=== PATIENT | male | born 1960 | race Caucasian/White ===

== ENCOUNTER 2020-12-11 14:23 | Day surgery (SDC) | payer OTHER ==
[2020-12-11] MEDS ORDERED: Xylocaine 1% Vial 30 ML PF IJ ONE (14:24)
[2020-12-11] MEDS ORDERED: BUPIVACAINE 0.5% VIAL IJ ONE (14:24)
[2020-12-11] MEDS ORDERED: Depo-Medrol 40 MG/ML IM ONE (14:24)
== END 2020-12-11 17:09 | disposition home or self-care (01) ==
LOC: SDC-PAIN 14:23
PROVIDERS: ATTEND Psychiatry & Neurology Pain Medicine
DX: M17.0 Bilateral primary osteoarthritis of knee (principal); F41.8 Other specified anxiety disorders; E11.22 Type 2 diabetes mellitus with diabetic chronic kidney disease; I13.10 Hypertensive heart and chronic kidney disease without heart failure, with stage 1 through stage 4 chronic kidney disease, or unspecified chronic kidney disease; N18.9 Chronic kidney disease, unspecified; L40.50 Arthropathic psoriasis, unspecified; M06.9 Rheumatoid arthritis, unspecified; G62.9 Polyneuropathy, unspecified; G25.81 Restless legs syndrome; Z79.899 Other long term (current) drug therapy
CPT/HCPCS: 20610; 77002; 82947; J1030; J2001; Q9966

== ENCOUNTER 2021-05-28 13:41 | Day surgery (SDC) | payer OTHER ==
[2021-05-28] MEDS ORDERED: Depo-Medrol 40 MG/ML IM ONE (13:42)
[2021-05-28] MEDS ORDERED: BUPIVACAINE 0.5% VIAL IJ ONE (13:42)
[2021-05-28] MEDS ORDERED: Xylocaine 1% Vial 30 ML PF IJ ONE (13:42)
--- NOTE | 2021-05-28 15:21 | XRAY ---
Indication: Right knee injection. Intraoperative fluoroscopy provided for 19 seconds. Single digital spot image submitted for interpretation demonstrates needle tip projecting over the right femur intercondylar notch. Small amount of contrast injected for needle tip placement. Correlate with intraoperative findings/report.
--- NOTE | 2021-05-28 15:21 | XRAY ---
Indication: Left knee injection. Intraoperative fluoroscopy provided for 14 seconds. Single digital spot image submitted for interpretation demonstrates needle tip projecting over the left femur intercondylar notch. Small amount of contrast injected for needle tip placement. Correlate with intraoperative findings/report.
--- NOTE | 2021-05-28 15:30 | XRAY ---
19 seconds fluoroscopy time in surgery for injection of the intra-articular joint space of the left knee.
--- NOTE | 2021-05-28 15:30 | XRAY ---
14 seconds fluoroscopy time in surgery for intra-articular injection of the right knee.
== END 2021-05-28 15:14 | disposition home or self-care (01) ==
LOC: SDC-PAIN 13:41
PROVIDERS: ATTEND Psychiatry & Neurology Pain Medicine
DX: M17.0 Bilateral primary osteoarthritis of knee (principal); F41.9 Anxiety disorder, unspecified; F32.9 Major depressive disorder, single episode, unspecified; M19.90 Unspecified osteoarthritis, unspecified site; I10 Essential (primary) hypertension; I25.10 Atherosclerotic heart disease of native coronary artery without angina pectoris; I49.9 Cardiac arrhythmia, unspecified; E11.9 Type 2 diabetes mellitus without complications; N18.9 Chronic kidney disease, unspecified; M06.9 Rheumatoid arthritis, unspecified; G62.9 Polyneuropathy, unspecified; Z79.899 Other long term (current) drug therapy
CPT/HCPCS: 20610; 73560; 77002; 82947; J1030; J2001; Q9966

== ENCOUNTER 2021-11-12 12:15 | Day surgery (SDC) | payer OTHER ==
--- NOTE | 2021-11-12 16:42 | XRAY ---
Indication: Bilateral hip injection. Intraoperative fluoroscopy provided for 43 seconds. 2 digital spot images submitted for interpretation demonstrates needle tip projecting lateral to the left and right femur necks. Small amount of contrast injected for needle tip placement. Correlate with intraoperative findings/report. Incidental old proximal right femur fracture with partially visualized orthopedic hardware.
--- NOTE | 2021-11-12 16:46 | XRAY ---
43 seconds fluoroscopy time in surgery for bilateral intra-articular injections of the hips.
== END 2021-11-12 15:38 | disposition home or self-care (01) ==
LOC: SDC-PAIN 12:15
PROVIDERS: ATTEND Psychiatry & Neurology Pain Medicine
DX: M17.0 Bilateral primary osteoarthritis of knee (principal); E11.9 Type 2 diabetes mellitus without complications; Z79.899 Other long term (current) drug therapy
CPT/HCPCS: 20610; 73521; 77002; 82947; Q9966

== ENCOUNTER 2021-12-17 10:42 | Day surgery (SDC) | payer OTHER ==
[2021-12-17] MEDS ORDERED: Marcaine Mpf 0.5% Vial 30 Ml IJ ONE (10:43)
[2021-12-17] MEDS ORDERED: Xylocaine 1% Vial 30 ML PF IJ ONE (10:43)
--- NOTE | 2021-12-17 14:37 | XRAY ---
Indication: Right knee genicular nerve block. Intraoperative fluoroscopy provided for 23 seconds. 5 digital spot images of the right knees demonstrates anterior needle tips projecting medial/lateral supracondylar and medial tibial plateau. Correlate with intraoperative findings/report.
--- NOTE | 2021-12-17 14:37 | XRAY ---
Indication: Left knee genicular nerve block. Intraoperative fluoroscopy provided for 33 seconds. 3 digital spot images of the left knee demonstrates anterior needle tips projecting medial/lateral supracondylar and medial tibial plateau. Correlate with intraoperative findings/report.
[2021-12-17] MEDS ORDERED: Lactated Ringers 1,000 ML IV ONE (15:11)
--- NOTE | 2021-12-17 15:17 | XRAY ---
23 seconds of fluoroscopy was used in surgery for a right knee genicular nerve block.
--- NOTE | 2021-12-17 15:18 | XRAY ---
33 seconds of fluoroscopy was used in surgery for a left knee genicular nerve block.
== END 2021-12-17 13:48 | disposition home or self-care (01) ==
LOC: SDC-PAIN 10:42
PROVIDERS: ATTEND Psychiatry & Neurology Pain Medicine
DX: M17.0 Bilateral primary osteoarthritis of knee (principal); E11.9 Type 2 diabetes mellitus without complications; Z79.899 Other long term (current) drug therapy
CPT/HCPCS: 64454; 73560; 77002; 82947; J2001

== ENCOUNTER 2022-01-14 09:35 | Day surgery (SDC) | payer OTHER ==
[2022-01-14] MEDS ORDERED: Depo-Medrol 40 MG/ML IM ONE (09:36)
[2022-01-14] MEDS ORDERED: XYLOCAINE-MPF 1% 5ML SDV IJ ONE (09:36)
[2022-01-14] MEDS ORDERED: Marcaine Mpf 0.5% Vial 30 Ml IJ ONE (09:36)
[2022-01-14] MEDS ORDERED: Lactated Ringers 1,000 ML IV ONE (11:20)
[2022-01-14] MEDS ORDERED: DIPRIVAN 200 MG/20 ML IV ONE ×2 (12:04→12:13)
--- NOTE | 2022-01-14 13:19 | XRAY ---
Indication: Right knee genicular nerve ablation. Intraoperative fluoroscopy provided for 27 seconds. 2 digital spot images of right knee submitted for interpretation demonstrates anterior needle tips projecting medial/lateral supracondylar and medial tibial plateau. Correlate with intraoperative findings/report.
--- NOTE | 2022-01-14 13:34 | XRAY ---
27 seconds fluoroscopy time in surgery for right genicular nerve block.
== END 2022-01-14 12:33 | disposition home or self-care (01) ==
LOC: SDC-PAIN 09:35
PROVIDERS: ATTEND Psychiatry & Neurology Pain Medicine
DX: M17.11 Unilateral primary osteoarthritis, right knee (principal); E11.9 Type 2 diabetes mellitus without complications; Z79.899 Other long term (current) drug therapy
CPT/HCPCS: 64624; 73560; 77002; 82947; J1030; J2704

== ENCOUNTER 2022-01-28 09:14 | Day surgery (SDC) | payer OTHER ==
[2022-01-28] MEDS ORDERED: Marcaine Mpf 0.5% Vial 30 Ml IJ ONE (09:15)
[2022-01-28] MEDS ORDERED: XYLOCAINE-MPF 1% 5ML SDV IJ ONE (09:15)
[2022-01-28] MEDS ORDERED: Depo-Medrol 40 MG/ML IM ONE (09:15)
[2022-01-28] MEDS ORDERED: DIPRIVAN 200 MG/20 ML IV ONE ×2 (11:28→11:38)
[2022-01-28] MEDS ORDERED: Lactated Ringers 1,000 ML IV ONE (11:35)
--- NOTE | 2022-01-29 18:30 | XRAY ---
39 seconds fluoroscopy time in surgery for genicular nerve block of the left knee.
--- NOTE | 2022-01-30 16:08 | XRAY ---
Indication: Left genicular nerve ablation. Intraoperative fluoroscopy provided for 39 seconds. 3 spot images submitted for interpetation demonstrates 3 needle tips, one projected over the medial margin of the proximal left tibia and 2 additional needle tips projected over the medial and lateral margins of the supracondylar area of the distal left femur. Correlate with intraoperative findings/report.
== END 2022-01-28 11:57 | disposition home or self-care (01) ==
LOC: SDC-PAIN 09:14
PROVIDERS: ATTEND Psychiatry & Neurology Pain Medicine
DX: M17.12 Unilateral primary osteoarthritis, left knee (principal); E11.9 Type 2 diabetes mellitus without complications; Z79.899 Other long term (current) drug therapy
CPT/HCPCS: 64624; 73560; 77002; 82947; J1030; J2704

== ENCOUNTER 2023-09-01 08:36 | Day surgery (SDC) | payer OTHER ==
[2023-09-01] MEDS ORDERED: XYLOCAINE-MPF 1% 5ML SDV IJ ONE (08:37)
[2023-09-01] MEDS ORDERED: BUPIVACAINE 0.5% VIAL IJ ONE (08:37)
[2023-09-01] MEDS ORDERED: Depo-Medrol 40 MG/ML IM ONE (08:37)
[2023-09-01] MEDS ORDERED: DIPRIVAN 200 MG/20 ML IV ONE (11:28)
[2023-09-01] MEDS ORDERED: Lactated Ringers 1,000 ML IV ONE (12:27)
--- NOTE | 2023-09-01 13:58 | XRAY ---
Indication: Right knee genicular nerve ablation. Intraoperative fluoroscopy provided for 28 seconds. 3 digital spot image right knee submitted for interpretation demonstrates anterior needle tips projecting medial/lateral supracondylar and medial tibial plateau. Correlate with intraoperative findings/report.
--- NOTE | 2023-09-01 14:09 | XRAY ---
28 seconds of fluoroscopy was used in surgery for a right genicular nerve ablation.
== END 2023-09-01 12:12 | disposition home or self-care (01) ==
LOC: SDC-PAIN 08:36
PROVIDERS: ATTEND Psychiatry & Neurology Pain Medicine
DX: M17.11 Unilateral primary osteoarthritis, right knee (principal); E11.9 Type 2 diabetes mellitus without complications
CPT/HCPCS: 64624; 73560; 77002; 82947; J1030; J2704

== ENCOUNTER 2023-09-15 08:34 | Day surgery (SDC) | payer OTHER ==
[2023-09-15] MEDS ORDERED: BUPIVACAINE 0.5% VIAL IJ ONE (08:35)
[2023-09-15] MEDS ORDERED: Depo-Medrol 40 MG/ML IM ONE (08:35)
[2023-09-15] MEDS ORDERED: DIPRIVAN 200 MG/20 ML IV ONE (10:42)
[2023-09-15] MEDS ORDERED: Lactated Ringers 1,000 ML IV ONE (11:22)
--- NOTE | 2023-09-15 12:10 | XRAY ---
Indication: Left knee genicular nerve ablation. Intraoperative fluoroscopy was provided for 35 seconds. 3 digital spot image submitted for interpretation demonstrates anterior needle tips projecting medial/lateral supracondylar and medial tibial plateau. Correlate with intraoperative findings/report.
--- NOTE | 2023-09-15 13:19 | XRAY ---
35 seconds of fluoroscopy was used in surgery for a left genicular nerve ablation.
== END 2023-09-15 11:15 | disposition home or self-care (01) ==
LOC: SDC-PAIN 08:34
PROVIDERS: ATTEND Psychiatry & Neurology Pain Medicine
DX: M17.12 Unilateral primary osteoarthritis, left knee (principal); E11.9 Type 2 diabetes mellitus without complications; Z79.899 Other long term (current) drug therapy
CPT/HCPCS: 64624; 73560; 77002; 82947; J1030; J2704

== ENCOUNTER 2024-03-15 16:05 | Day surgery (SDC) | payer MEDICARE, OTHER ==
[2024-03-15] MEDS ORDERED: Depo-Medrol 40 MG/ML IM ONE (16:06)
[2024-03-15] MEDS ORDERED: LIDOCAINE HCL 1% 50 MG/5 ML VL PF IJ ONE (16:06)
[2024-03-15] MEDS ORDERED: BUPIVACAINE 0.5% VIAL IJ ONE (16:06)
--- NOTE | 2024-03-15 18:48 | XRAY ---
Indication: Right shoulder and subacromial bursa injection. Intraoperative fluoroscopy provided for 24 seconds. 2 digital spot image submitted for interpretation demonstrates needle tip projecting over right glenohumeral joint superiorly. Second needle tip subacromial. Small amount of contrast injected for needle tip placement. Correlate with intraoperative findings/report.
--- NOTE | 2024-03-16 09:16 | XRAY ---
24 seconds of fluoroscopy used in surgery for a right intra-articular shoulder and right subacromial bursa injection.
== END 2024-03-15 17:48 | disposition home or self-care (01) ==
LOC: SDC-PAIN 16:05
PROVIDERS: ATTEND Psychiatry & Neurology Pain Medicine
DX: M19.011 Primary osteoarthritis, right shoulder (principal); M75.51 Bursitis of right shoulder; E10.9 Type 1 diabetes mellitus without complications
CPT/HCPCS: 20610; 73030; 77002; 82947; J2001; Q9966

== ENCOUNTER 2025-05-23 09:22 | Day surgery (SDC) | payer OTHER ==
[2025-05-23] MEDS ORDERED: LIDOCAINE HCL 2% 100 MG/5 ML IJ ONE (09:23)
[2025-05-23] MEDS ORDERED: propofoL IV ONE (11:42)
[2025-05-23] MEDS ORDERED: Lactated Ringers 1,000 ML IV ONE (14:02)
--- NOTE | 2025-05-23 14:46 | XRAY ---
Indication: Bilateral L4-S1 MBB. Intraoperative fluoroscopy provided for 7 seconds. Single digital spot image submitted for interpretation demonstrates posterior needle tips projecting over expected left and right L4-S1 nerve roots. Correlate with intraoperative findings/report.
--- NOTE | 2025-05-23 15:04 | XRAY ---
7 seconds of fluoroscopy was used in surgery for a bilateral L4-S1 MBB.
== END 2025-05-23 12:10 | disposition home or self-care (01) ==
LOC: SDC-PAIN 09:22
PROVIDERS: ATTEND Psychiatry & Neurology Pain Medicine
DX: M47.817 Spondylosis without myelopathy or radiculopathy, lumbosacral region (principal); E10.9 Type 1 diabetes mellitus without complications

== ENCOUNTER 2025-06-20 08:53 | Day surgery (SDC) | payer OTHER ==
[2025-06-20] MEDS ORDERED: BUPIVACAINE 0.5% VIAL IJ ONE (08:54)
[2025-06-20] MEDS ORDERED: propofoL IV ONE (11:24)
--- NOTE | 2025-06-20 11:59 | XRAY ---
Indication: Bilateral L4-S1 MBB. Intraoperative fluoroscopy provided for 12 seconds. Single digital spot image submitted for interpretation demonstrates posterior needle tips projecting over expected left and right L4-S1 nerve roots. Correlate with intraoperative findings/report.
--- NOTE | 2025-06-20 13:04 | XRAY ---
12 seconds of fluoroscopy was used in surgery for a bilateral L4-S1 MBB.
[2025-06-20] MEDS ORDERED: Lactated Ringers 1,000 ML IV ONE (13:42)
== END 2025-06-20 11:50 | disposition home or self-care (01) ==
LOC: SDC-PAIN 08:53
PROVIDERS: ATTEND Psychiatry & Neurology Pain Medicine
DX: M47.817 Spondylosis without myelopathy or radiculopathy, lumbosacral region (principal); E10.9 Type 1 diabetes mellitus without complications